=== PATIENT | female | born 1950 | race Caucasian/White ===

== ENCOUNTER 2018-02-22 13:59 | Emergency (ER) | payer BC ==
[2018-02-22] MEDS: KETOROLAC 15 MG INJ IM (14:22)
== END 2018-02-22 15:38 | disposition home or self-care (01) ==
LOC: FTE 13:59
DX: M25.512 Pain in left shoulder (principal); I10 Essential (primary) hypertension; E11.9 Type 2 diabetes mellitus without complications; Z79.84 Long term (current) use of oral hypoglycemic drugs; Z79.82 Long term (current) use of aspirin
CPT/HCPCS: 72040; 73030; 96372; 99284-25

== ENCOUNTER 2019-01-20 16:06 | Emergency (ER) | payer BC ==
[2019-01-20] MEDS: traMADol 50 MG TAB PO (17:02)
== END 2019-01-20 18:32 | disposition home or self-care (01) ==
LOC: FTE 16:06
DX: R51 Headache (principal); I10 Essential (primary) hypertension; E11.9 Type 2 diabetes mellitus without complications; Z79.82 Long term (current) use of aspirin; Z79.84 Long term (current) use of oral hypoglycemic drugs
CPT/HCPCS: 70450; 71045; 93005; 99285-25